=== PATIENT | female | born 1945 | race Caucasian/White ===

== ENCOUNTER → 2023-05-21 08:56 | Outpatient (REF) | payer MEDICARE, SELFPAY | LOC: RAD 08:56 | PROVIDERS: ATTENDING PHYSICIAN Obstetrics & Gynecology Gynecology; FAMILY PHYSICIAN Internal Medicine | DX: M85.80 Other specified disorders of bone density and structure, unspecified site (principal); M85.89 Other specified disorders of bone density and structure, multiple sites | CPT/HCPCS: 77080 ==

== ENCOUNTER → 2023-07-14 09:28 | Outpatient (REF) | payer MEDICARE, SELFPAY | LOC: RCS 09:28 | PROVIDERS: ATTENDING PHYSICIAN Orthopaedic Surgery Hand Surgery; FAMILY PHYSICIAN Internal Medicine | DX: M54.16 Radiculopathy, lumbar region (principal); M81.0 Age-related osteoporosis without current pathological fracture | CPT/HCPCS: 93005 ==

== ENCOUNTER → 2023-10-22 14:43 | Outpatient (REF) | payer MEDICARE, SELFPAY | LOC: WDC 14:43 | PROVIDERS: ATTENDING PHYSICIAN Internal Medicine | DX: Z12.31 Encounter for screening mammogram for malignant neoplasm of breast (principal) | CPT/HCPCS: 77063; 77067 ==

== ENCOUNTER → 2024-03-17 12:17 | Outpatient (REF) | payer MEDICARE, SELFPAY | LOC: PAVMRI 12:17 | PROVIDERS: ATTENDING PHYSICIAN Internal Medicine | DX: R42 Dizziness and giddiness (principal) | CPT/HCPCS: 70553; A9575 ==

== ENCOUNTER → 2024-08-04 11:24 | Outpatient (REF) | payer MEDICARE, SELFPAY | LOC: RAD 11:24 | PROVIDERS: ATTENDING PHYSICIAN Psychiatry & Neurology Neurology; FAMILY PHYSICIAN Internal Medicine | DX: R42 Dizziness and giddiness (principal) | CPT/HCPCS: 70496; 70498; Q9967 ==

== ENCOUNTER 2024-09-02 06:24 | Day surgery (SDC) | payer MEDICARE, SELFPAY | END 2024-09-02 11:20 | disposition home or self-care (01) | LOC: GI 06:24 | PROVIDERS: ATTENDING PHYSICIAN Internal Medicine Gastroenterology | DX: Z12.11 Encounter for screening for malignant neoplasm of colon (principal); K63.89 Other specified diseases of intestine; K62.89 Other specified diseases of anus and rectum; K64.8 Other hemorrhoids; K62.1 Rectal polyp; K63.5 Polyp of colon; Z80.0 Family history of malignant neoplasm of digestive organs | CPT/HCPCS: 45380; 88305 ==

== ENCOUNTER → 2024-10-27 07:41 | Outpatient (REF) | payer MEDICARE, SELFPAY | LOC: WDC 07:41 | PROVIDERS: ATTENDING PHYSICIAN Obstetrics & Gynecology Gynecology; FAMILY PHYSICIAN Internal Medicine | DX: Z12.31 Encounter for screening mammogram for malignant neoplasm of breast (principal); Z12.39 Encounter for other screening for malignant neoplasm of breast | CPT/HCPCS: 77063; 77067 ==

== ENCOUNTER → 2025-01-12 08:55 | Outpatient (REF) | payer MEDICARE, SELFPAY | LOC: MRI 3T 08:55 | PROVIDERS: ATTENDING PHYSICIAN Physician Assistant Medical; FAMILY PHYSICIAN Internal Medicine | DX: M54.50 Low back pain, unspecified (principal); M48.062 Spinal stenosis, lumbar region with neurogenic claudication; M43.16 Spondylolisthesis, lumbar region | CPT/HCPCS: 72148 ==

== ENCOUNTER → 2025-02-21 13:24 | Outpatient (REF) | payer MEDICARE, SELFPAY | LOC: PAVMRI 13:24 | PROVIDERS: ATTENDING PHYSICIAN Orthopaedic Surgery Orthopaedic Surgery of the Spine; FAMILY PHYSICIAN Internal Medicine | DX: M48.02 Spinal stenosis, cervical region (principal) | CPT/HCPCS: 72141 ==